=== PATIENT | female | born 1950 ===

== ENCOUNTER 2021-12-09 14:04 | Observation (INO) ==
[2021-12-09] MEDS ORDERED: 0.9 % SODIUM CHLORIDE 1,000 ML IV ONE (14:25)
[2021-12-09] MEDS ORDERED: SODIUM CHLORIDE 0.9% IV ONE (14:31)
[2021-12-09] MEDS ORDERED: ANTIVENIN CROTALIDAE FAB IV ONE (14:31)
[2021-12-09 14:39] LABS: POC Calcium, Ionized 1.19 (1.16-1.32); POC Potassium 3.7 (3.3-5.1)
--- NOTE | 2021-12-09 15:10 | Emergency Department Note ---
HPI General Chief complaint: Animal Bite Stated complaint: Right Hand Snake Bite Time Seen by Provider: 12/09/21 14:21 Source: patient Mode of arrival: ambulatory Limitations: no limitations History of Present Illness HPI Narrative: Narrative: Patient is a 71-year-old female with a history of hypertension who presents to the emergency department due to concern for rattlesnake bite. Patient states that she was in her garden when she saw a snake. She did not see a rattle initially, so tried to pick the snake up. She states that it was a small/baby snake. She states that she realized it was a rattlesnake after picking up, and after it bit her. She states that she quickly had a lot of pain, and that her finger started to swell very quickly. She also endorses burning pain at the area of swelling and lightheadedness. Related Data Home Medications Medication Instructions Recorded Confirmed clopidogrel 75 mg tablet (Plavix) 75 mg PO QDAY 12/09/21 12/09/21 lisinopril 10 mg tablet 15 mg PO QDAY 12/09/21 12/09/21 Allergies Allergy/AdvReac Type Severity Reaction Status Date / Time Penicillins Allergy Mild Hives Verified 12/09/21 14:05 Review of Systems ROS ROS Narrative: Narrative: Constitutional: Denies fever or weakness Eyes: Denies eye pain or vision change ENT ED: Denies throat pain, hearing loss or rhinorrhea Cardiovascular: Denies chest pain, dyspnea on exertion, orthopnea or edema Respiratory: Denies shortness of breath or cough Gastrointestinal: Denies abdominal pain, nausea, vomiting, diarrhea, constipation, hematochezia or melena Musculoskeletal: Denies back pain or myalgia Integumentary: Denies rash or lesions Neurological: Denies headache, weakness, numbness, confusion, abnormal gait or dizziness Psychiatric: Denies anxiety, suicidal thoughts or homicidal thoughts Endocrine: Denies fatigue or polyuria Hematological/Lymphatic: Denies easy bleeding or easy bruising PFSH Narrative Patient History Narrative: Narrative: Medical/Surgical/Family History All Active Problems (Updated 12/09/21 @ 17:25 by Ace Oneill MD) Rattlesnake bite (Acute) Exam Narrative Narrative: Narrative: General Limitations: no limitations General appearance: Present alert and in no apparent distress; Absent anxious, appears intoxicated or sleepy Head Head: Present normocephalic; Absent atraumatic Eye Eye: Present PERRL, EOMI and visual perez intact; Absent scleral icterus or nystagmus ENT ENT: Present mucous membranes moist; Absent nasal congestion Neck Neck: Present full ROM; Absent tenderness Chest Chest: Present normal inspection, symmetric chest wall rise and tenderness Respiratory Respiratory: Present normal lung sounds bilaterally; Absent respiratory distress or accessory muscle use Cardiovascular Cardiovascular: Present regular rate, normal rhythm and normal heart sounds Adbominal Abdominal: Present soft and normal bowel sounds; Absent distention or tenderness Extremities Extremities: Present normal inspection and full ROM; Absent tenderness Back Back: Present normal inspection and full ROM; Absent tenderness Neurological Neurological: Present alert, oriented X3, CN II-XII intact, normal gait and reflexes normal; Absent motor sensory deficit Psychiatric Psychiatric: Present normal affect and normal mood Skin Skin: Present warm (WNL), dry and normal color Course Vital Signs Vital signs: Vital Signs Temperature 98.3 F 12/09/21 14:05 Pulse Rate 98 H 12/09/21 14:05 Respiratory Rate 18 12/09/21 14:05 Blood Pressure 163/84 12/09/21 14:05 Pulse Oximetry (%) 97 12/09/21 14:05 Oxygen Delivery Method 12/09/21 14:05 Temperature 98.3 F 12/09/21 14:05 Pulse Rate 85 12/09/21 16:51 Respiratory Rate 12 12/09/21 16:51 Blood Pressure 161/74 12/09/21 16:51 Pulse Oximetry (%) 100 12/09/21 16:51 Oxygen Delivery Method 12/09/21 14:05 [facility] Narrative Medical decision making narrative: Narrative: Patient is a 71-year-old female who presents to the emergency department after snakebite. Patient had a picture of the snake. This was a rattlesnake. Patient had rapid swelling of her finger and hand and arm in the emergency department. She also had a brief period of bradycardia and lightheadedness. Patient was given CroFab and swelling stopped spreading around the end of patient's CroFab infusion. I spoke with Dr. John about admission and he has agreed to see and evaluate patient for admission. Lab Data Result diagrams: 12/09/21 14:20 Labs: Lab Results 12/09/21 12/09/21 12/09/21 Range/Units 14:20 14:20 14:36 WBC 6.8 (4.5-11.0) K/mcL RBC 4.58 (3.59-5.38) M/mcL Hgb 14.4 (11.2-15.7) g/dL Hct 43.9 (34.1-44.9) % POC Hct 45.0 (36-48) MCV 95.9 (80.0-100.0) fL MCH 31.4 (26.0-34.0) pg MCHC 32.8 (31.0-36.0) g/dL RDW 12.9 (11.5-14.5) % Plt Count 235 (140-440) K/mcL MPV 9.9 (8.8-12.5) fL Immature Gran % (Auto) 0.1 (0.0-0.5) % Neut % (Auto) 59.1 (38.0-78.0) % Lymph % (Auto) 27.3 (15.5-49.0) % [place] % (Auto) 9.4 (1.0-12.0) % Eos % (Auto) 2.8 (0.0-7.0) % Baso % (Auto) 1.3 (0.0-2.0) % Lymph # (Auto) 1.86 (1.50-4.80) K/mcL [place] # (Auto) 0.64 (0.10-0.90) K/mcL Eos # (Auto) 0.19 (0.00-0.70) K/mcL Baso # (Auto) 0.09 (0.00-0.30) K/mcL Immature Gran # 0.01 (0.00-0.05) K/mcl Absolute Neutrophils 4.02 (1.80-8.00) K/mcL PT 12.2 (11.9-14.5) sec INR 0.9 (0.9-1.1) APTT 23.9 (20.0-37.0) sec Fibrinogen 301 (200-400) mg/dL POC Sodium 139 (133-145) POC Potassium 3.7 (3.3-5.1) POC Chloride 103 (96-108) POC Total CO2 25.0 (22-30) POC BUN 23 H (6-20) POC Creatinine 1.0 (0.6-1.2) POC Glucose 107 H (70-105) POC WB Ioniz Calcium 1.19 (1.16-1.32) EKG Data EKG #1: EKG attestation: Yes I reviewed and interpreted this EKG. EKG results narrative: Normal sinus rhythm with a rate of 71, normal axis, SD 170, QRS of 81, QTc of 466, T wave flattening in aVL and lead III, and absence of ST elevation or depression. Discharge Plan Patient/Caregiver Discharge Instructions Pt seen by INFANT TEACHER/PA only: No Clinical Impression: Rattlesnake bite Patient Disposition: Xfer As Inpt ([facility]) Follow up with: Tennille East MD [Primary Care Provider] - Prescriptions: No Action clopidogrel [Plavix] 75 mg Tablet 75 mg PO QDAY lisinopril 10 mg Tablet 15 mg PO QDAY
[2021-12-09 15:27] LABS: Basophils # (Auto) 0.09 K/mcL (0.00-0.30); Basophils % (Auto) 1.3 % (0.0-2.0); Eosinophils # (Auto) 0.19 K/mcL (0.00-0.70); Eosinophils % (Auto) 2.8 % (0.0-7.0); Hematocrit 43.9 % (34.1-44.9); Hemoglobin 14.4 g/dL (11.2-15.7); Lymphocytes # (Auto) 1.86 K/mcL (1.50-4.80); Lymphocytes % (Auto) 27.3 % (15.5-49.0); Mean Cell Volume 95.9 fL (80.0-100.0); Mean Corpuscular HGB Conc 32.8 g/dL (31.0-36.0); Mean Platelet Volume 9.9 fL (8.8-12.5); Monocytes # (Auto) 0.64 K/mcL (0.10-0.90); Monocytes % (Auto) 9.4 % (1.0-12.0); Neutrophils % (Auto) 59.1 % (38.0-78.0); Platelet Count 235 K/mcL (140-440); RBC 4.58 M/mcL (3.59-5.38); Red Cell Distribution Width 12.9 % (11.5-14.5); WBC 6.8 K/mcL (4.5-11.0)
[2021-12-09] MEDS ORDERED: DIPH,PERTUSS(ACELL),TET VAC/PF 0.5 ML SYRINGE IM ONE (15:32)
[2021-12-09] MEDS ORDERED: HYDROcodone/APAP 5/325MG TABLET PO ONE (15:33)
[2021-12-09 15:46] LABS: INR 0.9 (0.9-1.1); Prothrombin Time 12.2 sec (11.9-14.5)
[2021-12-09 15:47] LABS: Partial Thromboplastin Time 23.9 sec (20.0-37.0)
--- NOTE | 2021-12-09 17:39 | Internal Med History&Physical ---
HPI History of Present Illness Patient information: Note initiated : 12/09/21 at 5:36 pm Service Date, if different from initiated Date: [] Patient: Tariq Gregorio a 71 y/o F admitted on for Right Hand Snake Bite. Chief Complaint: [] History of present illness: Ms. 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 CBC with differential, PT, PTT, fibrinogen were normal. Renal function panel was notable for mildly elevated BUN. The patient received CroFab in the emergency department, hospital medicine was consulted for further inpatient management. Review of systems Constitutional: no fever, fatigue, or weight loss Eyes: no vision changes or pain Cardiovascular: no chest pain, no palpitations Respiratory: no cough or dyspnea Gastrointestinal: no abdominal pain, no nausea, vomiting, or diarrhea Genitourinary: no dysuria or difficulty voiding Musculoskeletal: Right hand edema and pain Integumentary: Right hand rattlesnake bite, right hand edema Neurological: no focal weakness or numbness Psychiatric: no anxiety or depression Physical exam Head: Atraumatic, normal inspection. Eyes: normal appearance, no scleral icterus. Neck: full ROM Respiratory: no respiratory distress. Cardiovascular: normal rate and rhythm, S1, S2. GI/Abdominal: soft, nontender, no guarding. Extremities: Right hand edema, 1 skin prick from a rattlesnake bite, edema extends up to mid forearm. Neurological: CN II-XII intact, intact motor, intact sensation. Psychiatric: normal mood. Skin: warm, normal color PFSH PFSH All Active Problems (Updated 12/09/21 @ 17:25 by Ace Oneill MD) Rattlesnake bite (Acute) MEDS/ALLERGIES Home Medications and Allergies Home Medications Medication Instructions Recorded Confirmed Type clopidogrel 75 mg tablet (Plavix) 75 mg PO QDAY 12/09/21 12/09/21 History lisinopril 10 mg tablet 15 mg PO QDAY 12/09/21 12/09/21 History Allergies Allergy/AdvReac Type Severity Reaction Status Date / Time Penicillins Allergy Mild Hives Verified 12/09/21 14:05 EXAM Constitutional Vitals: Temp Pulse Resp BP Pulse Ox O2 Del Method 98.3 F 82 14 150/70 96 12/09/21 14:05 12/09/21 17:26 12/09/21 17:26 12/09/21 17:26 12/09/21 17:26 12/09/21 14:05 DATA Data Completed and Pending Labs: Labs from last 24 hours 12/09/21 12/09/21 12/09/21 14:36 14:20 14:20 WBC 6.8 RBC 4.58 Hgb 14.4 Hct 43.9 POC Hct 45.0 MCV 95.9 MCH 31.4 MCHC 32.8 RDW 12.9 Plt Count 235 MPV 9.9 Immature Gran % (Auto) 0.1 Neut % (Auto) 59.1 Lymph % (Auto) 27.3 [place] % (Auto) 9.4 Eos % (Auto) 2.8 Baso % (Auto) 1.3 Lymph # (Auto) 1.86 [place] # (Auto) 0.64 Eos # (Auto) 0.19 Baso # (Auto) 0.09 Immature Gran # 0.01 Absolute Neutrophils 4.02 PT 12.2 INR 0.9 APTT 23.9 Fibrinogen 301 POC Sodium 139 POC Potassium 3.7 POC Chloride 103 POC Total CO2 25.0 POC BUN 23 H POC Creatinine 1.0 POC Glucose 107 H POC WB Ioniz Calcium 1.19 A/P Narrative A/P Narrative: Assessment: 71-year-old female with history of hypertension, peripheral arterial disease status post left lower extremity arterial stent, tobacco use disorder in remission admitted for a rattlesnake bite to her right index finger. #Rattlesnake bite to right index finger #Hypertension #Peripheral arterial disease Plan -Admit to PCU for close monitoring. -CroFab 2 vials IV every 6 hrs x3. -Monitor PT/PTT/fibrinogen/CBC. -Monitor right upper extremity edema. -Continue home Plavix, hold lisinopril for now. -autotransfusionist. Time Spent With Patient Time: Total time spent is greater than 50% in coordination of care (as documented) at patient's floor/unit and/or counseling patient:
[2021-12-09] MEDS ORDERED: ONDANSETRON 4 MG/2 ML VIAL IV PRN (19:23)
[2021-12-09] MEDS ORDERED: LACTULOSE 20 GM/30 ML ORAL.SOL PO PRN (19:23)
[2021-12-09] MEDS ORDERED: ACETAMINOPHEN 325 MG TABLET PO PRN (19:23)
[2021-12-09] MEDS ORDERED: HYDROmorphone 0.5 MG/0.5 ML SYRINGE IV PRN (19:23)
[2021-12-09] MEDS ORDERED: SENNOSIDES 1 TABLET PO PRN (19:23)
[2021-12-09] MEDS ORDERED: HYDROcodone/APAP 5/325MG TABLET PO PRN (19:23)
[2021-12-09 19:39] LABS: POC INR 1.1 (0.8-1.2); POC Pro Time 12.7 (11.9-14.5)
[2021-12-09 20:12] LABS: Basophils # (Auto) 0.06 K/mcL (0.00-0.30); Basophils % (Auto) 0.8 % (0.0-2.0); Eosinophils # (Auto) 0.14 K/mcL (0.00-0.70); Eosinophils % (Auto) 1.8 % (0.0-7.0); Hemoglobin 12.9 g/dL (11.2-15.7); Lymphocytes # (Auto) 1.64 K/mcL (1.50-4.80); Lymphocytes % (Auto) 20.6 % (15.5-49.0); Mean Corpuscular HGB Conc 33.1 g/dL (31.0-36.0); Mean Platelet Volume 9.8 fL (8.8-12.5); Monocytes # (Auto) 0.71 K/mcL (0.10-0.90); Monocytes % (Auto) 8.9 % (1.0-12.0); Neutrophils % (Auto) 67.6 % (38.0-78.0); Platelet Count 221 K/mcL (140-440); RBC 4.15 M/mcL (3.59-5.38)
[2021-12-09 20:32] LABS: INR 0.9 (0.9-1.1); Partial Thromboplastin Time 21.2 sec (20.0-37.0)
[2021-12-09] MEDS: SODIUM CHLORIDE 0.9% IV SCH (21:37)
[2021-12-09] MEDS: ANTIVENIN CROTALIDAE FAB IV SCH (21:37)
[2021-12-09] MEDS: 0.9 % SODIUM CHLORIDE 10 ML SYRINGE IV SCH (21:38)
[2021-12-10 03:01] LABS: Basophils # (Auto) 0.08 K/mcL (0.00-0.30); Basophils % (Auto) 1.3 % (0.0-2.0); Eosinophils # (Auto) 0.21 K/mcL (0.00-0.70); Eosinophils % (Auto) 3.3 % (0.0-7.0); Hematocrit 42.4 % (34.1-44.9); Hemoglobin 13.2 g/dL (11.2-15.7); Lymphocytes # (Auto) 1.89 K/mcL (1.50-4.80); Lymphocytes % (Auto) 29.5 % (15.5-49.0); Mean Cell Volume 99.5 fL (80.0-100.0); Mean Corpuscular HGB Conc 31.1 g/dL (31.0-36.0); Monocytes % (Auto) 9.4 % (1.0-12.0); Neutrophils % (Auto) 56.3 % (38.0-78.0); Platelet Count 200 K/mcL (140-440); RBC 4.26 M/mcL (3.59-5.38); Red Cell Distribution Width 13.1 % (11.5-14.5); WBC 6.4 K/mcL (4.5-11.0)
[2021-12-10 03:15] LABS: INR 0.9 (0.9-1.1); Partial Thromboplastin Time 22.4 sec (20.0-37.0); Prothrombin Time 12.7 sec (11.9-14.5)
[2021-12-10] MEDS: ANTIVENIN CROTALIDAE FAB IV SCH ×2 (04:32→10:24)
[2021-12-10] MEDS: SODIUM CHLORIDE 0.9% IV SCH ×2 (04:32→10:24)
[2021-12-10] MEDS: 0.9 % SODIUM CHLORIDE 10 ML SYRINGE IV SCH (04:33)
[2021-12-10] MEDS ORDERED: CLOPIDOGREL 75 MG TABLET PO SCH (09:00)
[2021-12-10 09:27] LABS: Basophils # (Auto) 0.06 K/mcL (0.00-0.30); Basophils % (Auto) 1.1 % (0.0-2.0); Eosinophils # (Auto) 0.24 K/mcL (0.00-0.70); Eosinophils % (Auto) 4.4 % (0.0-7.0); Hematocrit 39.8 % (34.1-44.9); Lymphocytes # (Auto) 1.32 K/mcL (1.50-4.80); Lymphocytes % (Auto) 24.4 % (15.5-49.0); Mean Cell Volume 94.8 fL (80.0-100.0); Mean Corpuscular HGB Conc 32.7 g/dL (31.0-36.0); Mean Platelet Volume 10.1 fL (8.8-12.5); Monocytes # (Auto) 0.56 K/mcL (0.10-0.90); Monocytes % (Auto) 10.3 % (1.0-12.0); Neutrophils % (Auto) 59.6 % (38.0-78.0); Platelet Count 190 K/mcL (140-440); Red Cell Distribution Width 13.1 % (11.5-14.5); WBC 5.4 K/mcL (4.5-11.0)
[2021-12-10 09:51] LABS: Partial Thromboplastin Time 21.8 sec (20.0-37.0)
[2021-12-10 09:52] LABS: INR 0.9 (0.9-1.1); Prothrombin Time 12.9 sec (11.9-14.5)
[2021-12-10 12:50] LABS: Basophils # (Auto) 0.07 K/mcL (0.00-0.30); Basophils % (Auto) 1.2 % (0.0-2.0); Eosinophils # (Auto) 0.23 K/mcL (0.00-0.70); Eosinophils % (Auto) 3.9 % (0.0-7.0); Hemoglobin 13.2 g/dL (11.2-15.7); Lymphocytes # (Auto) 1.42 K/mcL (1.50-4.80); Lymphocytes % (Auto) 23.9 % (15.5-49.0); Mean Cell Volume 95.3 fL (80.0-100.0); Mean Corpuscular HGB Conc 32.2 g/dL (31.0-36.0); Mean Platelet Volume 9.9 fL (8.8-12.5); Monocytes # (Auto) 0.52 K/mcL (0.10-0.90); Monocytes % (Auto) 8.8 % (1.0-12.0); Platelet Count 199 K/mcL (140-440); WBC 5.9 K/mcL (4.5-11.0)
[2021-12-10 13:13] LABS: Partial Thromboplastin Time 25.2 sec (20.0-37.0)
[2021-12-10 13:14] LABS: Prothrombin Time 13.2 sec (11.9-14.5)
[2021-12-10 16:30] LABS: Basophils # (Auto) 0.05 K/mcL (0.00-0.30); Basophils % (Auto) 0.8 % (0.0-2.0); Eosinophils # (Auto) 0.24 K/mcL (0.00-0.70); Eosinophils % (Auto) 4.1 % (0.0-7.0); Hematocrit 38.1 % (34.1-44.9); Hemoglobin 12.5 g/dL (11.2-15.7); Lymphocytes # (Auto) 1.34 K/mcL (1.50-4.80); Lymphocytes % (Auto) 22.6 % (15.5-49.0); Mean Cell Volume 94.1 fL (80.0-100.0); Mean Corpuscular HGB Conc 32.8 g/dL (31.0-36.0); Mean Platelet Volume 9.8 fL (8.8-12.5); Monocytes # (Auto) 0.59 K/mcL (0.10-0.90); Neutrophils % (Auto) 62.3 % (38.0-78.0); Platelet Count 188 K/mcL (140-440); RBC 4.05 M/mcL (3.59-5.38); Red Cell Distribution Width 12.8 % (11.5-14.5); WBC 5.9 K/mcL (4.5-11.0)
[2021-12-10 16:51] LABS: INR 0.9 (0.9-1.1); Partial Thromboplastin Time 24.4 sec (20.0-37.0); Prothrombin Time 12.5 sec (11.9-14.5)
--- NOTE | 2021-12-10 17:11 | Discharge Summary ---
Discharge Provider Provider IMPORTANT FOLLOW-UP INFORMATION FOR PCP: Patient information: Note initiated : 12/10/21 at 5:09 pm Service Date, if different from initiated Date: [] Patient: Tariq Gregorio 71 y/o F admitted on 12/09/21 for Right Hand Snake Bite. Chief Complaint: [] Date of admission: 12/09/21 19:10 Discharge date: 12/10/21 Primary care physician: Tennille East Consults: 12/09/21 Consult to Physician [CONS] Stat Comment: Consulting Provider: Sandoval John Reason For Exam: Physician to Consult COURSE Hospital Course Hospital course: Ms. 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 CBC with differential, PT, PTT, fibrinogen were normal. Renal function panel was notable for mildly elevated BUN. The patient received CroFab in the emergency department, hospital medicine was consulted for further inpatient management. 12/10 Patient completed 3 more treatments of CroFab 2 vials IV each. Serial lab results have been normal. Discussed the patient with poison control, will proceed with discharge to home and have the patient monitor her hand edema which has been stable throughout her hospital stay. Patient was instructed to return to the emergency department if the right hand edema worsens. Physical exam Head: Atraumatic, normal inspection. Eyes: normal appearance, no scleral icterus. Neck: full ROM Respiratory: no respiratory distress. Cardiovascular: normal rate and rhythm, S1, S2. GI/Abdominal: soft, nontender, no guarding. Extremities: Right hand edema, edema extends up to mid forearm. Neurological: CN II-XII intact, intact motor, intact sensation. Psychiatric: normal mood. Skin: warm, normal color Discharge diagnosis: Rattlesnake bite Time Spent with Patient Time attestation: Total time spent providing and/or coordinating discharge services: Time spent: Greater than 30 minutes EXAM Constitutional Vitals: Temp Pulse Resp BP Pulse Ox O2 Del Method 98 F 83 17 167/80 99 12/10/21 16:01 12/10/21 16:01 12/10/21 16:01 12/10/21 16:01 12/10/21 16:01 12/10/21 05:00 Discharge Data Data Completed and Pending Labs on day of discharge: Labs from last 24 hours 12/10/21 12/10/21 12/10/21 15:47 15:47 12:21 WBC 5.9 RBC 4.05 Hgb 12.5 Hct 38.1 MCV 94.1 MCH 30.9 MCHC 32.8 RDW 12.8 Plt Count 188 MPV 9.8 Immature Gran % (Auto) 0.2 Neut % (Auto) 62.3 Lymph % (Auto) 22.6 [place] % (Auto) 10.0 Eos % (Auto) 4.1 Baso % (Auto) 0.8 Lymph # (Auto) 1.34 L [place] # (Auto) 0.59 Eos # (Auto) 0.24 Baso # (Auto) 0.05 Immature Gran # 0.01 Absolute Neutrophils 3.69 POC PT PT 12.5 POC INR INR 0.9 APTT 24.4 Fibrinogen 283 Total Creatine Kinase 56 12/10/21 12/10/21 12/10/21 12:19 12:19 07:33 WBC 5.9 RBC 4.30 Hgb 13.2 Hct 41.0 MCV 95.3 MCH 30.7 MCHC 32.2 RDW 13.0 Plt Count 199 MPV 9.9 Immature Gran % (Auto) 0.2 Neut % (Auto) 62.0 Lymph % (Auto) 23.9 [place] % (Auto) 8.8 Eos % (Auto) 3.9 Baso % (Auto) 1.2 Lymph # (Auto) 1.42 L [place] # (Auto) 0.52 Eos # (Auto) 0.23 Baso # (Auto) 0.07 Immature Gran # 0.01 Absolute Neutrophils 3.69 POC PT PT 13.2 12.9 POC INR INR 1.0 0.9 APTT 25.2 21.8 Fibrinogen 323 275 Total Creatine Kinase 12/10/21 12/10/21 12/10/21 07:33 01:49 01:49 WBC 5.4 6.4 RBC 4.20 4.26 Hgb 13.0 13.2 Hct 39.8 42.4 MCV 94.8 99.5 MCH 31.0 31.0 MCHC 32.7 31.1 RDW 13.1 13.1 Plt Count 190 200 MPV 10.1 10.0 Immature Gran % (Auto) 0.2 0.2 Neut % (Auto) 59.6 56.3 Lymph % (Auto) 24.4 29.5 [place] % (Auto) 10.3 9.4 Eos % (Auto) 4.4 3.3 Baso % (Auto) 1.1 1.3 Lymph # (Auto) 1.32 L 1.89 [place] # (Auto) 0.56 0.60 Eos # (Auto) 0.24 0.21 Baso # (Auto) 0.06 0.08 Immature Gran # 0.01 0.01 Absolute Neutrophils 3.23 3.61 POC PT PT 12.7 POC INR INR 0.9 APTT 22.4 Fibrinogen 272 Total Creatine Kinase 12/09/21 12/09/21 12/09/21 19:41 19:41 19:34 WBC 8.0 RBC 4.15 Hgb 12.9 Hct 39.0 MCV 94.0 MCH 31.1 MCHC 33.1 RDW 13.0 Plt Count 221 MPV 9.8 Immature Gran % (Auto) 0.3 Neut % (Auto) 67.6 Lymph % (Auto) 20.6 [place] % (Auto) 8.9 Eos % (Auto) 1.8 Baso % (Auto) 0.8 Lymph # (Auto) 1.64 [place] # (Auto) 0.71 Eos # (Auto) 0.14 Baso # (Auto) 0.06 Immature Gran # 0.02 Absolute Neutrophils 5.39 POC PT 12.7 PT 13.0 POC INR 1.1 INR 0.9 APTT 21.2 Fibrinogen 250 Total Creatine Kinase Discharge Plan Patient/Caregiver Discharge Instructions Activity: increase activity as tolerated Diet: Regular Diet Prescriptions: Continued clopidogrel [Plavix] 75 mg Tablet 75 mg PO QDAY lisinopril 10 mg Tablet 15 mg PO QDAY Follow Up Plan Follow up with: Tennille East MD [Primary Care Provider] - Patient Disposition: Home, Self-Care Overall status at discharge: patient is progressing back to baseline Discharge Orders: Discharge Order (Routine); Ordered 12/10/21 Ordered By: Sandoval John QUALITY VTE Deep Vein Thrombosis/Pulmonary Embolism Present on Admission: No
--- NOTE | 2021-12-10 18:34 | EKG ---
[facility] Test Date: 2021-12-09 Pat Name: Tariq Gregorio Department: ED Room: Gender: Female Staff Rn: : 1950 Requested By: Ace Oneill Order Number: [id number] Reading MD: Carroll Garibay Measurements Intervals [place] Rate: 71 P: 78 [place]: 170 QRS: 30 QRSD: 81 T: 37 QT: 428 QTc: 466 Interpretive Statements Sinus rhythm Electronically Signed On 12-10-2021 18:33:49 PDT by Carroll Garibay /store/M0/[id number]
== END 2021-12-10 17:54 | disposition home or self-care (01) ==
LOC: ICU 14:04 → ED 14:04 → ICU 19:10
PROVIDERS: ADMIT Internal Medicine; ATTEND Internal Medicine